=== PATIENT | female | born 1950 | race Caucasian/White ===

== ENCOUNTER 2018-02-14 06:07 | Emergency (ER) | payer MEDICAID ==
[~2018-02-14] VITALS: Ht 165.1 cm; Wt 129.7 kg
[2018-02-14] MEDS ORDERED: ALBUTEROL2.5 MG/31 (06:27)
[2018-02-14 06:59] LABS: ABSOLUTE BASOPHILS 0.1 thou/uL (0.0-0.2); ABSOLUTE EOSINOPHILS 0.4 thou/uL (0.0-0.7); ABSOLUTE LYMPHOCYTES 2.2 thou/uL (0.8-5.3); ABSOLUTE MONOCYTES 0.9 thou/uL (0.0-1.2); ABSOLUTE NEUTROPHILS 4.4 thou/uL (1.6-8.1); BASOPHILS 1.3 %; EOSINOPHILS 5.3 %; HEMATOCRIT 40.9 % (37.0-47.0); HEMOGLOBIN 13.9 gm/dL (12.0-15.0); LYMPHOCYTES 27.6 %; MCH 30.6 pg (26.0-34.0); MONOCYTES 11.4 %; MPV 9.5 fl. (7.2-11.1); NUCLEATED RBCS 0 /100WBC; PLATELET COUNT* 273 thou/uL (150-400); POLYS 54.4 %; RBC 4.54 mil/uL (4.20-5.00); RDW-CV 13.1 % (10.5-14.5); WBC 8.1 thou/uL (4.0-11.0)
[2018-02-14 07:02] LABS: URINE BILIRUBIN NEGATIVE (Negative); URINE BLOOD NEGATIVE (Negative); URINE CLARITY CLEAR; URINE COLOR YELLOW; URINE GLUCOSE-RANDOM NEGATIVE (Negative); URINE KETONES NEGATIVE (Negative); URINE LEUKOCYTES-REFLEX 1+ (Negative); URINE NITRITE-REFLEX NEGATIVE (Negative); URINE PROTEIN NEGATIVE (Negative); URINE UROBILINOGEN 0.2 E.U./dl (0.2-1.0)
[2018-02-14 07:12] LABS: PROTIME 9.4 Seconds (9.20-11.50)
[2018-02-14 07:13] LABS: SQUAMOUS 4-10 Moderate /LPF (0-3); URINE WBC-REFLEX 0-5 Rare /HPF (0-5)
[2018-02-14 07:14] LABS: ANION GAP 10 mmol/L (7-16); BUN 22 mg/dL (7-18); CALCIUM 9.3 mg/dL (8.5-10.1); CHLORIDE 105 mmol/L (98-107); CO2 27 mmol/L (21-32); CREATININE 0.7 mg/dL (0.6-1.3); GLUCOSE 114 mg/dL (70-99); POTASSIUM 3.8 mmol/L (3.5-5.1); SODIUM 142 mmol/L (136-145)
[2018-02-14 07:14] LABS: BACTERIA-REFLEX 1-9 Few /HPF (None Seen); CASTS None Seen /LPF (None Seen); CRYSTALS None Seen /LPF (None Seen); MUCUS None Seen strn/LPF (None Seen); URINE RBC 3-10 Few /HPF (0-2)
[2018-02-14 07:26] LABS: ALBUMIN 3.5 g/dL (3.4-5.0); ALKALINE PHOSPHATASE 103 U/L (46-116); NT-PRO BRAIN NAT PEPTIDE 80 pg/mL (<300); SGOT 26 U/L (15-37); SGPT 33 U/L (30-65); TOTAL BILIRUBIN 0.6 mg/dL (<0.1-1.0); TOTAL PROTEIN 6.7 g/dL (6.4-8.2); TROPONIN-I LEVEL <0.06 ng/mL (<0.06)
[2018-02-14] MEDS ORDERED: ZESTORETIC 20-1 EACH PO (07:51)
[2018-02-14] MEDS ORDERED: LABETALOL HCL100 MG PO (08:00)
[2018-02-14] MEDS ORDERED: CATAPRES0.2 MG PO (08:00)
[2018-02-14 08:23] VITALS: BP 168/80
--- NOTE | 2018-02-14 13:57 | EKG ---
[place] [address] ELECTROCARDIOGRAM REPORT Name: MARYJANE FLEMING [id number] Admission: 02/14/18 Attend Phys: Discharge: 02/14/18 Date of : 54 Report #: [id number] THIS REPORT FOR: //name// [facility] [place] ED Test Date: 2018-02-14 Test Time: 06:22:31 Pat Name: MARYJANE FLEMING Department: Room: Gender: F Construction Equipment Operator: MARIE : 1950 Requested By: Dunia Sweeney Order Number: [id number] MD: Rashaun Bowen Measurements Intervals [place] Rate: 101 P: 64 [place]: 202 QRS: 27 QRSD: 97 T: 39 QT: 338 QTc: 439 Interpretive Statements Sinus tachycardia LAE, consider biatrial enlargement Baseline wander in lead(s) V6 No previous ECG available for comparison Electronically Signed On 02-14-2018 13:57:30 CDT by Rashaun Bowen [email or web address] <ELECTRONICALLY SIGNED> By: Rashaun Bowen MD, [facility] 02/14/18 1357 0622 1 Rashaun Bowen MD, FACC /EPI
== END 2018-02-14 08:24 | disposition home or self-care (01) ==
LOC: M.ERS 06:07
PROVIDERS: Emergency Medicine
DX: I10 Essential (primary) hypertension (principal); J45.909 Unspecified asthma, uncomplicated; Z90.49 Acquired absence of other specified parts of digestive tract; Z98.890 Other specified postprocedural states; Z88.6 Allergy status to analgesic agent

== ENCOUNTER 2019-03-26 19:43 | Inpatient (IN) | payer MEDICAID ==
[~2019-03-26] VITALS: Ht 162.6 cm; Wt 137.3 kg
[~2019-03-26 19:43] MED LIST: ALBUTEROL2.5 MG/31; CATAPRES0.2 MG PO; LABETALOL HCL100 MG PO; ZESTORETIC 20-1 EACH PO
[2019-03-26 19:50] VITALS: BP 208/97
[2019-03-26] MEDS ORDERED: LABETALOL HCL100 MG PO (19:56)
[2019-03-26 20:12] LABS: HEMATOCRIT 44.6 % (37.0-47.0); MCH 30.1 pg (26.0-34.0); MCHC 33.7 g/dL (28.0-37.0); MCV 89.4 fL (80.0-100.0); NUCLEATED RBCS 0 /100WBC; PLATELET COUNT* 283 thou/uL (150-400); RBC 4.98 mil/uL (4.20-5.00); RDW-CV 13.1 % (10.5-14.5); WBC 15.2 thou/uL (4.0-11.0)
[2019-03-26 20:20] LABS: ANION GAP 9 mmol/L (7-16); BUN 25 mg/dL (7-18); CALCIUM 9.2 mg/dL (8.5-10.1); CHLORIDE 102 mmol/L (98-107); CO2 27 mmol/L (21-32); CREATININE 0.8 mg/dL (0.6-1.3); GLUCOSE 129 mg/dL (70-99); POTASSIUM 4.8 mmol/L (3.5-5.1); SODIUM 138 mmol/L (136-145)
[2019-03-26 20:30] LABS: ALBUMIN 3.7 g/dL (3.4-5.0); ALKALINE PHOSPHATASE 100 U/L (46-116); LIPASE 92 U/L (73-393); SGOT 51 U/L (15-37); SGPT 47 U/L (30-65); TOTAL BILIRUBIN 0.7 mg/dL (<0.1-1.0); TOTAL PROTEIN 7.8 g/dL (6.4-8.2); TROPONIN-I LEVEL <0.06 ng/mL (<0.06)
[2019-03-26 20:48] LABS: ABSOLUTE EOSINOPHILS 0.2 thou/uL (0.0-0.7); ABSOLUTE LYMPHOCYTES 1.4 thou/uL (0.8-5.3); ABSOLUTE MONOCYTES 0.5 thou/uL (0.0-1.2); ABSOLUTE NEUTROPHILS 13.2 thou/uL (1.6-8.1)
[2019-03-26 20:49] LABS: LARGE PLATELETS OCCASIONAL; PLATELET ESTIMATE ADEQUATE
[2019-03-26 21:04] LABS: URINE BILIRUBIN NEGATIVE (Negative); URINE BLOOD TRACE (Negative); URINE CLARITY CLEAR; URINE COLOR YELLOW; URINE GLUCOSE-RANDOM NEGATIVE (Negative); URINE KETONES 2+ (Negative); URINE LEUKOCYTES-REFLEX 1+ (Negative); URINE NITRITE-REFLEX NEGATIVE (Negative); URINE PROTEIN NEGATIVE (Negative); URINE UROBILINOGEN 0.2 E.U./dl (0.2-1.0)
[2019-03-26 21:17] LABS: CASTS None Seen /LPF (None Seen); SQUAMOUS >10 Many /LPF (0-3)
[2019-03-26 21:18] LABS: URINE WBC-REFLEX 6-15 Few /HPF (0-5)
[2019-03-26 21:19] LABS: BACTERIA-REFLEX >30 Many /HPF (None Seen); CRYSTALS None Seen /LPF (None Seen); URINE RBC 0-2 Rare /HPF (0-2)
[2019-03-27 00:38] VITALS: BP 160/65
[2019-03-27 01:00] VITALS: BP 156/75
[2019-03-27] MEDS ORDERED: PROAIR HFA8.5 GM PO (02:28)
[2019-03-27] MEDS ORDERED: DUONEB INH (02:29)
[2019-03-27 07:30] VITALS: BP 144/74
--- NOTE | 2019-03-27 10:38 | EKG ---
[place] [address] ELECTROCARDIOGRAM REPORT Name: MARYJANE FLEMING Room: [address] ADM IN .R.#: [id number] Admission: 03/26/19 Attend Phys: Jacques Yanez MD Discharge: Date of : 54 Report #: [id number] THIS REPORT FOR: //name// [facility] ED Test Date: 2019-03-26 Test Time: 19:56:11 Pat Name: MARYJANE FLEMING Department: Room: [facility] Gender: F Special Education Assistant: [place] : 1950 Requested By: Dunia Sweeney Order Number: [id number] MD: Demar Costello Measurements Intervals [place] Rate: 113 P: 59 [place]: 187 QRS: -4 QRSD: 103 T: 35 QT: 335 QTc: 460 Interpretive Statements Sinus tachycardia LAE, consider biatrial enlargement Compared to ECG 02/14/2018 06:22:31 No significant changes Electronically Signed On 03-27-2019 10:38:23 CDT by Demar Costello [email or web address] <ELECTRONICALLY SIGNED> By: Demar Costello MD, [facility] 03/27/19 1038 [id number] 55 Demar Costello MD, FACC /EPI
[2019-03-27 16:00] VITALS: BP 142/78
[2019-03-27 21:51] VITALS: BP 126/65
[2019-03-28 05:14] LABS: ABSOLUTE EOSINOPHILS 0.2 thou/uL (0.0-0.7); ABSOLUTE LYMPHOCYTES 1.4 thou/uL (0.8-5.3); ABSOLUTE NEUTROPHILS 4.8 thou/uL (1.6-8.1); BASOPHILS 0.3 %; EOSINOPHILS 2.3 %; LYMPHOCYTES 19.5 %; MCH 30.6 pg (26.0-34.0); MCHC 33.5 g/dL (28.0-37.0); MCV 91.2 fL (80.0-100.0); MONOCYTES 13.2 %; MPV 9.3 fl. (7.2-11.1); NUCLEATED RBCS 0 /100WBC; PLATELET COUNT* 212 thou/uL (150-400); POLYS 64.7 %; RBC 4.05 mil/uL (4.20-5.00); RDW-CV 13.2 % (10.5-14.5); WBC 7.4 thou/uL (4.0-11.0)
[2019-03-28 05:33] LABS: CALCIUM 7.4 mg/dL (8.5-10.1); CREATININE 0.9 mg/dL (0.6-1.3); POTASSIUM 3.4 mmol/L (3.5-5.1)
[2019-03-28 05:44] LABS: HEMOGLOBIN 12.4 gm/dL (12.0-15.0)
[2019-03-28 08:04] VITALS: BP 115/50
[2019-03-28 19:15] VITALS: BP 141/74
[2019-03-29 08:10] VITALS: BP 128/81
[2019-03-29] MEDS ORDERED: CEFUROXIME500 MG PO (15:53)
[2019-03-29 15:54] VITALS: BP 128/81
== END 2019-03-29 16:10 | disposition home or self-care (01) | DRG 690 ==
LOC: M.ERS 19:43 → M.TBA-ER 23:33 → M.ORTHSURG 23:51 → M.TBA-ER 23:51 → M.ORTHSURG 03-27 00:43
PROVIDERS: Emergency Medicine; ADMIT Internal Medicine
DX: N39.0 Urinary tract infection, site not specified (principal); R65.10 Systemic inflammatory response syndrome (SIRS) of non-infectious origin without acute organ dysfunction; J45.909 Unspecified asthma, uncomplicated; E86.0 Dehydration; I10 Essential (primary) hypertension; R00.0 Tachycardia, unspecified; Z90.49 Acquired absence of other specified parts of digestive tract; Z88.6 Allergy status to analgesic agent; Z88.2 Allergy status to sulfonamides; Z88.8 Allergy status to other drugs, medicaments and biological substances